=== PATIENT | female | born 1975 | race African-American/Black ===

== ENCOUNTER 2016-05-23 00:01 | Emergency (ER) | payer MEDICAID ==
[~2016-05-23] VITALS: Ht 170.2 cm; Wt 125.0 kg
[2016-05-23] MEDS ORDERED: ONDANSETRON HCL 4MG/2ML VIAL IV STA (00:20)
[2016-05-23] MEDS ORDERED: SODIUM CHLORIDE 0.9% 1,000 ML IV ONE (00:20)
[2016-05-23] MEDS ORDERED: MORPHINE SULFATE 4 MG/ML CPJ (NOT FOR IM USE) IV STA (00:20)
[2016-05-23 00:46] LABS: EOSINOPHILS % 1.1 % (0.0-5.0); HEMATOCRIT. 38.2 % (36.0-48.0); HEMOGLOBIN. 12.2 g/dL (12.0-16.0); LYMPHOCYTES % 26.8 % (20.0-50.0); MEAN CORPUSCULAR HEMOGLOBIN 26.5 pg (28.0-32.0); MEAN CORPUSCULAR HGB CONC 31.9 g/dL (31.0-37.0); MEAN CORPUSCULAR VOLUME 83.1 fL (81.0-99.0); MONOCYTES % 6.1 % (2.0-8.0); WHITE BLOOD COUNT 16.3 x1000/uL (4.5-11.0)
[2016-05-23 00:47] LABS: DIFFERENTIAL COMMENT 1
[2016-05-23 00:50] LABS: CHLORIDE 101 mEq/L (98-107); INDEX HEMOLYSI 3 (1-3); INDEX ICTERIC 1 (1-4); INDEX LIPEMIC 1 (1-3)
[2016-05-23 00:51] LABS: PARTIAL THROMBOPLASTIN TIME 25.9 sec (24.0-34.0); PROTHROMBIN TIME 10.6 sec
[2016-05-23 00:55] LABS: HCG SCREEN NEGATIVE
[2016-05-23 00:59] LABS: ALANINE AMINOTRANSFERASE 35 IU/L (13-61); ALBUMIN 3.3 g/dL (3.4-5.0); ANION GAP 13; CALCIUM 8.9 mg/dL (8.5-10.1); CARBON DIOXIDE 29 mEq/L (21-32); UREA NITROGEN BLOOD 9 mg/dL (7-21); eGFR > 60 mL/min (>60)
[2016-05-23 01:01] LABS: MEAN PLATELET VOLUME 9.1 fl (7.4-10.4); PLATELET 435 x1000/uL (130-400)
[2016-05-23] MEDS ORDERED: TETANUS, DIPHTHERIA, PERTUSSIS VAC/PF 0.5ML (>7YR OLD) IM ONE (03:00)
[2016-05-23 04:11] LABS: CLARITY URINE CLEAR (CLEAR); COLOR URINE YELLOW (YELLOW); GLUCOSE URINE NEGATIVE (NEGATIVE); KETONES URINE NEGATIVE (NEGATIVE); LEUKOCYTE ESTERASE URINE NEGATIVE (NEGATIVE); NITRITE URINE NEGATIVE (NEGATIVE); OCCULT BLOOD URINE TRACE (NEGATIVE); PH URINE 6.5 (4.5-8.0); PROTEIN URINE NEGATIVE (NEGATIVE); SPECIFIC GRAVITY URINE 1.054 (1.005-1.030); UROBILINOGEN URINE 0.2 E.U./dL (0.2-1.0)
[2016-05-23 04:12] LABS: BACTERIA URINE NONE SEEN; CALCIUM PHOSPHATE CRYSTALS UR NONE SEEN /lpf; SQUAMOUS EPITHELIAL CELL URINE 1+ /lpf (RARE/1+); WAXY CASTS URINE NONE SEEN /lpf; WBC URINE NONE SEEN /hpf (0-2); YEAST URINE NONE SEEN
[2016-05-23] MEDS ORDERED: MORPHINE SULFATE 4 MG/ML CPJ (NOT FOR IM USE) IV ONE (06:45)
[2016-05-23] MEDS ORDERED: ONDANSETRON HCL 4MG/2ML VIAL IV ONE (07:00)
[2016-05-23 07:12] VITALS: BP 136/79
[2016-05-23] MEDS ORDERED: IOHEXOL-300 100 ML BOTTLE ONE (09:55)
[2016-05-23] MEDS ORDERED: SODIUM CHLORIDE 0.9% 10ML VIAL ONE (09:55)
== END 2016-05-23 08:32 | disposition short-term general hospital (02) ==
LOC: ER 01:00
DX: S71.101A Unspecified open wound, right thigh, initial encounter (principal); M19.90 Unspecified osteoarthritis, unspecified site; I10 Essential (primary) hypertension; W34.00XA Accidental discharge from unspecified firearms or gun, initial encounter; Y93.89 Activity, other specified; Y92.89 Other specified places as the place of occurrence of the external cause; Y99.9 Unspecified external cause status; Z23 Encounter for immunization
CPT/HCPCS: 36415; 71010; 72170; 73552; 74177; 80053; 81001; 84703; 85025; 85610; 85730; 86850; 86900; 86901; 90471; 90715; 96361; 96374; 96375; 96376; 99285; A4216; J2270; J2405; J7030; Q9967; Z7610